=== PATIENT | female | born 2005 | race Caucasian/White ===

== ENCOUNTER 2024-12-08 14:36 | Outpatient (AMB) | payer OTHER, SELFPAY ==
--- NOTE | 2024-12-08 14:41 | MHC.PC.OV ---
Vital Signs 12/08/24 14:46 Height 5 ft 7.5 in Weight 151 lb 8 oz BMI 23.4 BP 98/66 Blood Pressure Location Lt brachial Position Sitting Respiration 12 Pulse 56 Pulse Source Pulse Oximeter Temp 97.3 F Temp Source Oral Pulse Oximetry (%) 100 Oxygen Delivery Method Room Air Intake Visit Reasons: CPE? Intake Note: New patient to establish care and CPE. Patient c/o consistent acne. Consulting Services Associate Required: No Allergies No Known Allergies Allergy (Verified 12/08/24 15:00) Medication List - Last Reconciled 12/08/24 by Olinda Florentino, POLYSTYRENE MOLDING MACHINE TENDER- isotretinoin (Accutane) PO norgestimate-ethinyl estradiol 0.18/0.215/0.25 mg-0.025 mg (Bgd-Yl-[id number]) 1 tab PO DAILY Tobacco use date assessed: 12/08/24 Dental Screening Dental Screen Date: 12/08/24 Did you have a dental visit in the last 12 months?: Yes Did you have a dental problem in the last 6 months where you did not have access to dental care?: No Was dental information given to patient?: Patient has dentist HPI HPI Comments History of Present Illness Details 19 y/o F with cystic acne Social: [employer] in [place], just finished Freshman year 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 - Symptoms exacerbated after new control. - Possible food sensitivity to gluten, uncertain improvement. - Chronic bloating and constipation, exacerbated by hormonal changes. Wonders about probiotics and dietary management for gut health - Recent wisdom teeth extraction. Optho no glasses or contacts Past Surgical History - [place] teeth extraction, approximately one month ago. Family History - No family history of polycystic ovarian syndrome (PCOS). - No family history of uterine or ovarian cancer. - No family history of celiac disease. Social History - Currently a student majoring in [employer]; undecided on future direction. 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 Health Maintenance - Tetanus vaccination due this year; patient opted to delay. - Recent blood work for Accutane regimen monitoring, focusing on liver enzymes. - Patient is aware of potential vision changes with Accutane and may require an eye exam Review of Systems - Skin: Reports cystic acne with recent exacerbation. - Gastrointestinal: Reports bloating, constipation; denies blood in stool. - Endocrine: Denies irregular periods. - Genitourinary: Denies urinary problems. - Respiratory: Denies respiratory issues. - Neurological: Denies headaches or vision problems. - Musculoskeletal: Reports muscle soreness due to daily exercise. - Psychological: Reports mild anxiety related to skin condition. - Recent dietary changes include gluten restriction for potential sensitivity assessment. - Exercises regularly, plays field hockey, and lifts weights daily. - Reports mild nervousness and irritability attributed to skin condition Physical Exam General: Well developed, well nourished, in no acute distress. Appears stated age. Head: Normocephalic, atraumatic. Eyes: Pupils are equal, round and reactive to light and accommodation. Conjunctivae are clear. Vision grossly normal. Ears: TMs clear AU, EACS WNL Nose: Patent, without discharge. Neck: Supple, no adenopathy or thyromegaly. Breast: Edu on SBE Lungs: Clear to auscultation bilaterally. No rales, rhonchi or wheeze noted. Good air flow in all falcon. Heart: Regular rate and rhythm. No murmurs, click, rubs or gallops are noted. Abdomen: Bowel sounds present in all quadrants. The abdomen is soft, nontender, with no masses or organomegaly noted. No hernias are noted. : Deferred. Reviewed recommendations for routine MANAGER [facility]ALTHCARE. Pulses: Peripheral pulses are equal and palpable bilaterally. Extremities: No clubbing, cyanosis nor edema is noted. Neurologic: Gait and station normal. Cranial Nerves 2-12 intact. Motor strength grossly symmetrical and intact. No sensory loss. Balance normal. Skin: No rashes, ulcers, or lesions noted. Turgor is good. Skin color is good. Hair and nails are without abnormalities. Cystic acne to face Psych: Normal eye contact, affect and mood appropriate, and normal interactions. Patient is alert and appropriate to context. Results Pending Discussion Notes A comprehensive discussion was conducted regarding the patient's skin condition and associated symptoms. We reviewed potential links to hormonal changes due to recent control commencement and possible dietary triggers. Discussed the benefits and necessity of a gluten and lactose challenge in cases of suspected intolerance. Explored the utility of referral to gastroenterology for comprehensive evaluation. The patient is educated on the benefits of employing a probiotic regimen for GI health and exploring possible ultrasound imaging for ongoing bloating. Provided preventative health guidance and set expectations for lab result timelines from today's testing. Explained the importance of using the patient portal for direct communication and frequent updates. Assured the patient of future availability for telehealth appointments as needed during school term. Assessment and Plan 1. Cystic Acne - Correlation with control; Accutane to be initiated; eye exam advised. Managed by Derm [place] 2. Constipation and Bloating - Probiotics and dietary fiber trial or OTC miralax; Considered checking labs but she is limiting dairy and gluten so labs would not be useful at this time; consider ultrasound and GI consult if sx cont. Patient Instructions - Start Accutane as scheduled on December 26. - Consider trying a probiotic to help with gut health. could try otc miralax, too. - Maintain a balanced diet; monitor any food sensitivities. - Opt for ultrasound if bloating persists. - Use patient portal for direct communication. -RTO 1 year CPE sooner prn Consent Patient was informed and verbally consented to the use of an ambient scribe for clinic note documentation during this visit. An additional 20 minutes was spent addressing the problem(s) noted at todays visit. This includes time spent before the visit reviewing the chart, time spent during the visit, and time spent after the visit on documentation [facility] Medical History (Updated 12/08/24 @ 15:30 by [facility] Acne No pertinent family history Surgical History (Updated 12/08/24 @ 14:50 by Cristiane Zaragoza MA) [place] teeth extracted (~2024) Social History (Updated 12/08/24 @ 14:48 by Cristiane Zaragoza MA) Household Members: Family Housing: House Are you a primary life care planner to a significant other at home: No Do you presently have visiting nurse or other home services: No Alcohol intake: never Patient Tobacco Use Status: Never used Tobacco e-Cigarette/Vaping Use: Never Used Second Hand Smoke Exposure: No Current occupational status: employed and student 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 1. Little interest or pleasure in doing things: not at all 2. Feeling down, depressed, or hopeless: not at all 3. Trouble falling or staying asleep, or sleeping too much: not at all 4. Feeling tired or having little energy: not at all 5. Poor appetite or overeating: not at all 6. Feeling bad about yourself - or that you are a failure or have let yourself or your family down: not at all 7. Trouble concentrating on things, such as reading the newspaper or watching television: not at all 8. Moving or speaking so slowly that other people could have noticed. Or the opposite - being so fidgety or restless that you have been moving around a lot more than usual: not at all 9. Thoughts that you would be better off or of hurting yourself in some way: not at all Total score: 0 Depression Screening Interpretation: Negative Depression Screening Done: Yes 56881 - PHQ-9 Billing: Yes Source: Developed by Drs. Christiano Rosario, Lynn Scales, Alphonso Dunham and colleagues, with an educational niyah from [employer]. Thrive Questionnaire Date Thrive assessed: 12/08/24 I am a: Patient What is your living situation today?: I have a steady place to live Within the past 12 months, did the food you bought not last and you didn't have the money to get more?: Never true Within the past 12 months, did you worry whether your food would run out before you got money to buy more?: Never true Do you have trouble paying for medicines?: No Do you have trouble getting transportation to medical appointments?: No Do you have trouble paying your heating and electricity bill?: No Do you have trouble taking care of your child, family member or friend?: No Do you have trouble with day-to-day activities such as bathing, preparing meals, shopping, managing finances, etc.?: No Are you currently unemployed and looking for a job?: No Are you interested in more education?: No Please select the resources that you would like help with: None Currently or been in a relationship where the following occur: No concerns reported THRIVE Score: 0 AUDIT C Alcohol Use Questionnaire (AUDIT-C) 1. How often do you have a drink containing alcohol?: Monthly or less 2. How many drinks containing alcohol do you have on a typical day when you are drinking?: 1 or 2 3. How often do you have six or more drinks on one occasion?: Never Total Score: 1 Score Reviewed/Action Taken: Yes LATRELL-7 AMB Questionnaire LATRELL-7 Date LATRELL - 7 assessed: 12/08/24 Feeling nervous, anxious, or on edge: 1 = Several days Not being able to stop or control worryin = Several days Worrying too much about different things: 0 = Not at all Trouble relaxin = Not at all Being so restless that it is hard to sit still: 0 = Not at all Becoming easily annoyed or irritable: 1 = Several days Feeling afraid as if something awful might happen: 0 = Not at all Total LATRELL-7 score (0-4 normal; 5-9 mild; 10-14 moderate; 15-21 severe): 3 Source: Developed by Drs. Christiano Rosario, Lynn Scales, Alphonso Dunham and colleagues, with an educational niyah from [employer]. LATRELL-7 Assessment Billing LATRELL-7 Assessment Tool: LATRELL-7 Assessment 87584 Physical exam (Primary Care) Vital Signs: Last Vital Signs Temp 97.3 F 12/08/24 14:46 Pulse 56 12/08/24 14:46 Resp 12 12/08/24 14:46 BP 98/66 12/08/24 14:46 Pulse Ox 100 12/08/24 14:46 Oxygen Delivery Method Room Air 12/08/24 14:46 BMI result Body Mass Index 23.4 Tobacco/Smoking Status: Tobacco use Status Tobacco use date assessed 12/08/24 12/08/24 14:47 Patient Tobacco Use Status Never used Tobacco 12/08/24 14:48 e-Cigarette/Vaping Use Never Used 12/08/24 14:48 PHQ-9: PHQ-9 Score PHQ-9: Total score 0 12/08/24 14:55 Depression Screening Interpretation: Negative Thrive Assessment: Date of Thrive Assessment Date Thrive assessed 12/08/24 12/08/24 14:47 Currently or been in a relationship where the following occur: No concerns reported Coding Level of Care Code New Pt Level 2 (39566) New Pt Prev Care 18-39yr(76889 Diagnoses Encounter to establish care Z76.89 Abdominal bloating R14.0 Constipation, unspecified constipation type K59.00 Constipation type: unspecified constipation type Cystic acne L70.0 Uses control Z78.9 Laboratory exam ordered as part of routine general medical examination Z00.00 Tetanus, diphtheria, and acellular pertussis (Tdap) vaccination declined Z28.21 Encounter for general adult medical examination with abnormal findings Z00.01 Additional Codes LATRELL-7 Assessment Billing - LATRELL-7 Assessment Tool: LATRELL-7 Assessment 09575 ([id number]) PHQ-9 - 38237 - PHQ-9 Billing: Yes ([id number]) Assessment & Plan Assessment & Plan (1) Encounter to establish care: Code(s): Z76.89 - Persons encountering health services in other specified circumstances (2) Abdominal bloating: Code(s): R14.0 - Abdominal distension (gaseous) Category: Medical (3) Constipation: Code(s): K59.00 - Constipation, unspecified Category: Medical Qualifiers: Constipation type: unspecified constipation type Qualified Code(s): K59.00 - Constipation, unspecified (4) Cystic acne: Code(s): L70.0 - Acne vulgaris Category: Medical (5) Uses control: Code(s): Z78.9 - Other specified health status Category: Social Hx (6) Laboratory exam ordered as part of routine general medical examination: Code(s): Z00.00 - Encounter for general adult medical examination without abnormal findings Category: Medical (7) Tetanus, diphtheria, and acellular pertussis (Tdap) vaccination declined: Code(s): Z28.21 - Immunization not carried out because of patient refusal Category: Medical (8) Encounter for general adult medical examination with abnormal findings: Onset Date: ~12/08/24 Code(s): Z00.01 - Encounter for general adult medical examination with abnormal findings Category: Medical Plan . Orders: Orders Complete Blood Count no Diff Today Z00.00 - Encounter for general adult medical examination without abnormal findings Hemoglobin A1c Today Z00.00 - Encounter for general adult medical examination without abnormal findings Microalbumin, Random (w Creat) Today Z00.00 - Encounter for general adult medical examination without abnormal findings Vitamin D 1,25 dihydroxy Today Z00.00 - Encounter for general adult medical examination without abnormal findings Comprehensive Met. Panel Today Z - Encounter for general adult medical examination without abnormal findings Ferritin Today - Encounter for general adult medical examination without abnormal findings Lipid Panel Today - Encounter for general adult medical examination without abnormal findings TSH reflex Free T4 Today - Encounter for general adult medical examination without abnormal findings Vitamin B12 and Folate Today - Encounter for general adult medical examination without abnormal findings Patient Instructions: Patient Instructions - Start Accutane as scheduled on December 26. - Consider trying a probiotic to help with gut health. could try otc miralax, too. - Maintain a balanced diet; monitor any food sensitivities. - Opt for ultrasound if bloating persists. - Use patient portal for direct communication. -RTO 1 year CPE sooner prn Health screenings for women You should visit your health care provider from time to time, even if you are healthy. The purpose of these visits is to: Screen for medical issues Assess your risk for future medical problems Encourage a healthy lifestyle Update vaccinations and other preventive care services Help you get to know your provider in case of an illness Information Even if you feel fine, you should still see your provider for regular checkups. These visits can help you avoid problems in the future. For example, the only way to find out if you have high blood pressure is to have it checked regularly. High blood sugar and high cholesterol levels also may not have any symptoms in the early stages. A simple blood test can check for these conditions. There are specific times when you should see your provider or receive specific health screenings. The [place] Preventive Services Task Force publishes a list of recommended screenings. Below are screening guidelines for women ages 18 to 39. BLOOD PRESSURE SCREENING Your blood pressure should be checked at least once every 3 to 5 years if: Your blood pressure is in the normal range (top number less than 120 mm Hg and bottom number less than 80 mm Hg) You don't have risk factors for high blood pressure Ask your provider if you need your blood pressure checked more often if: The top number is 120 to 129 mm Hg or the bottom number is 70 to 79 mm Hg You have diabetes, heart disease, kidney problems, are overweight, or have certain other health conditions You have a first-degree relative with high blood pressure You are Black You had high blood pressure during a If the top number is 130 mm Hg or greater or the bottom number is 80 mm Hg or greater, this is considered stage 1 hypertension. Schedule an appointment with your provider to learn how you can reduce your blood pressure. Watch for blood pressure screenings in your area. Ask your provider if you can stop in to have your blood pressure checked. BREAST CANCER SCREENING Experts do not agree about the benefits of breast self-exams in finding breast cancer or saving lives. Talk to your provider about what is best for you. A screening mammogram is not recommended for most women under age 40. Your provider may discuss and recommend mammograms, MRI scans, or ultrasounds if you have an increased risk for breast cancer, such as: A mother or sister who had breast cancer at a young age (most often starting screening earlier than the age the close relative was diagnosed) You carry a high-risk genetic marker CERVICAL CANCER SCREENING Cervical cancer screening should start at age 21 years unless your provider advises otherwise. After the first test: Women ages 21 through 29 should have a Pap test every 3 years. Exoprts do not agree on whether HPV testing is recommended for this age group. Women ages 30 through 65 should be screened with either a Pap test every 3 years or the HPV test every 5 years or both tests every 5 years (called cotesting ). Women who have been treated for precancer (cervical dysplasia) should continue to have Pap tests for 20 years after treatment or until age 65, whichever is longer. If you have had your uterus and cervix removed (total hysterectomy), and you have not been diagnosed with cervical cancer or precancer (high grade cervical neoplasia), you do not need cervical cancer screening. CHOLESTEROL SCREENING Cholesterol screening should begin at: Age 45 for women with no known risk factors for coronary heart disease Age 20 for women with known risk factors for coronary heart disease Repeat cholesterol screening should take place: Every 5 years for women with normal cholesterol levels More often if changes occur in lifestyle (including weight gain and diet) More often if you have diabetes, heart disease, kidney problems, or certain other conditions DIABETES SCREENING You should be screened for diabetes starting at age 35 and then repeated every 3 years if you have no risk factors for diabetes. Screening may need to start earlier and be repeated more often if you have other risk factors for diabetes, such as: You have a first degree relative with diabetes. You are overweight or have obesity. You have high blood pressure, prediabetes, or a history of heart disease. Screening for diabetes should be done if you are planning to become and you are overweight and have other risk factors such as high blood pressure. DENTAL EXAM Go to the dentist once or twice every year for an exam and cleaning. Your dentist will evaluate if you need more frequent visits. EYE EXAM Have an eye exam every 5 to 10 years before age 40. If you have vision problems, have an eye exam every 2 years or more often if recommended by your provider. You should have an eye exam that includes an examination of your retina (back of your eye) at least every year if you have diabetes. IMMUNIZATIONS Commonly needed vaccines include: Flu shot: get one every year. COVID-19 vaccine: ask your provider what is best for you. Tetanus-diphtheria and acellular pertussis (Tdap) vaccine: have one at or after age 19 as one of your tetanus-diphtheria vaccines if you did not receive it as an adolescent. Tetanus-diphtheria: have a booster (or Tdap) every 10 years. Varicella vaccine: receive 2 doses if you never had chickenpox or the varicella vaccine. Hepatitis B vaccine: receive 2, 3, or 4 doses, depending on your exact circumstances. Measles, mumps, and rubella (MMR) vaccine: receive 1 to 2 doses if you are not already immune to MMR. Your provider can tell you if you are immune. Ask your provider about the human papillomavirus (HPV) vaccine if: You have not received the HPV vaccine in the past You have not completed the full vaccine series (you should catch up on this shot) Ask your provider if you should receive other immunizations if you have certain health problems that increase your risk for some diseases such as pneumonia. INFECTIOUS DISEASE SCREENING Women who are sexually active should be screened for chlamydia and gonorrhea up until age 25. Women 25 years and older should be screened for chlamydia and gonorrhea if at high risk. Screening for hepatitis C: All adults ages 18 to 79 should get a one-time test for hepatitis C. people should be screened at every . Screening for human immunodeficiency virus (HIV): All people ages 15 to 65 should get a one-time test for HIV. Depending on your lifestyle and medical history, you may also need to be screened for infections such as syphilis and HIV, as well as other infections. PHYSICAL EXAM All adults should visit their provider from time to time, even if they are healthy. The purpose of these visits is to: Screen for disease Assess your risk of future medical problems Encourage a healthy lifestyle Update your vaccinations and other preventive care services Maintain a relationship with a provider in case of an illness Your height, weight, and BMI should be checked at every exam. During your exam, your provider may ask you about: Depression and anxiety Diet and exercise Alcohol and tobacco use Safety issues, such as using seat belts, smoke detectors, and intimate partner violence Your medicines and risk for interactions SKIN SELF-EXAM Your provider may check your skin for signs of skin cancer, especially if you're at high risk, such as if you: Have had skin cancer before Have close relatives with skin cancer Have a weakened immune system OTHER SCREENING Talk with your provider about colon cancer screening if you have a strong family history of colon cancer or polyps, or if you have had inflammatory bowel disease or polyps yourself. Routine bone density screening of women under 40 is not recommended.
[2024-12-08 14:46] VITALS: BP 98/66; PULSE 56; RESP 12; TEMP 36.3; O2SAT 100; BMI 23.4
--- OUTSIDE RECORDS SUMMARY | 2024-12-08 15:07 | XMS_ITS | Data Portability ---
Author Organization [place] - [facility], Allergy Address [address] [place] [id number] Care Team Providers Care Prop Worker Name Role Phone MARYBELKIS CHAUDHARY Primary Care Provider Assessment No assessment recorded. Plan of Treatment Reminders Order Date Submit Date Provider Last Modified By Organization Details Last Modified Time Details Appointments None recorded. Lab None recorded. Referral None recorded. Procedures None recorded. Surgeries None recorded. Imaging None recorded. Medication Orders Augmentin 875 mg-125 mg tablet 2023 [id number], [address] [place], [address], 4 15:37:06 prednisone 20 mg tablet 2023 024 [id number], [address] [place], [address], 4 15:37:06 Patient TargetsNo targets recorded. Patient InstructionsNo instructions recorded. Reason for Referral None Reported. Problems Name Problem SNOMED Code Status Onset Date Resolution Date Notes Provider Name and Address Organization Details Recorded Time Acute tonsillitis 11688666 Active 2023 MAICO Joiner MD [address] [place] [address], [place], [phone], [facility] - [facility] 4 15:34:40 Peritonsillar abscess 18622121 Active 2023 MAICO Joiner MD [address] [place] [address], [place], [phone], [facility] - [facility] 15:40:31 Problem Notes None recorded. Procedures Surgical History Date Name Laterality Status Provider Name and Address Organization Details Recorded Time 05/07/20 24 I & D Peritonsillar Abscess_JMS completed MAICO BUTLER MD [address] [place] [address], [phone], [facility] - [facility] 05/07/2024 15:40:10 Imaging Results None recorded. Procedure Notes None recorded. Medical Equipment None Reported. Allergies No known drug allergies Medications Name Sig Start Date Stop Date Status Note LastModified by Organization Details LastModified Time clindamycin HCl 300 mg capsule active Not Available Not Available Not Available prednisone 20 mg tablet Take 1 tablet as needed by oral route. active Not Available Not Available No t Available penicillin V potassium 500 mg tablet TAKE 1 TABLET 2 (TWO) TIMES A DAY. TAKE WITH FOOD, YOGURT, PROBIOT ICS. FINISH ALL. 05/07 completed Not Available Not Available Not Available amoxicillin 875 mg-potassium clavulanate 125 mg tablet Take 1 tablet every 12 hours by oral route for 10 days. active Not Available Not Available No t Available Debora (28) 3 mg-0.02 mg tablet TAKE 1 TABLET BY MOUTH EVERY DAY active Not Available Not Available No t Available Vitals Date Recorded Body height Body mass index (BMI) Body mass index (BMI) [Percentile] Per age and sex Body weight Provider Name and Address Organization Details Last Updated DateTime 05/07/2024 172.72 cm 19.8 kg/m2 25 % 64593.01 g Carolyn George [facility] 05/07/2024 14:50:59 Social History None recorded. Functional Status None recorded. Mental Status None recorded. Family History Nothing Reported. Medical History No medical history recorded. Gynecological HistoryNo gynecological history recorded. Obstetrics History GPAL:G 0 P 0 0 0 0 Past Encounters Encounter ID Performer Location Encounter Start Date Encounter Closed Date Diagnosis/Indication Diagnosis SNOMED-CT Code Diagnosis ICD10 Code Diagnosis Note [id number] MAICO BUTLER MD [facility] [address] [phone] 05/07/2024 14:37:46 05/07/2024 16:51:08 Acute tonsillitis 31977959 J03.90 I attempted aspiration of a right WELL LOGGER without any return of purulence. She likely has not quite developed an abscess yet. I will send abx and 2 doses of steroids to try and keep her out of the hospital. I told her if she doesn't improve she has to go to the ER for pain control and hydration. No indication for tonsilelct ailyn at this time. Peritonsillar abscess 15 108292 J36 phlegmon rather than abscess Health Concerns Section Related Observation LastModified by Organization Detai ls LastModified Time None Recorded Concern Status LastModified by Organization Details LastModified Time None Recorded Advance Directives Directive None Recorded Payers Insurance Date Sequence Insurance Name Policy Number Policy Garcia Covered Member ID Garcia Member ID Guarantor Name 05/07/2024 1 [facility] [employer] [facility] (PPO) [id number] Rajwinder Johns [id number] Rajwinder Johns Notes Date Note Type Note Provider Name and Address Organization Details Recorded Time 05/07/2024 text/html She developed a sore throat yesterday. She went to urgent care yesterday. No prior history of strep. She was tested for strep, covid and flu which were all negative. Otherwise healthy. She does not smoke. MAICO BUTLER MD [address] [place] [address], [place], [phone], [facility] - [facility] 05/07/2024 15:40:48 OBGyn Episode No OBEpisode recorded.
--- OUTSIDE RECORDS SUMMARY | 2024-12-08 15:07 | XMS_ITS | Encounter Summary ---
Author Organization [facility] Address [address] [place] [address] Phone Care Team Providers Care Masticator Name Role Phone Tiana Mcghee MD Primary Care Provider Encounter Details Date Type Department Care Team (Late st Contact Info) Description 01/25/2017 Conversion Encounter [facility] [place] [address] [place] [address] Social History Tobacco Use Types Packs/Day Years Used Date Smoking Tobacco: Never Assessed Comments Unknown Sex and Gender Information Value Date Recorded Sex Assigned at Female 07/05/2023 9:27 AM EST Legal Sex Female 5:07 PM EDT Gender Identity Female 07/05/2023 9:27 AM EST Sexual Orientation Straight 07/05/2023 9: 27 AM EST documented as of this encounter Plan of Treatment Not on file documented as of this encounter Visit Diagnoses Not on filedocumented in this encounter Care Teams Masticator Relationship Specialty Start Date End Date Tiana Mcghee MD [address] [place] [address] PCP - General 01/19/17 documented as of this encounter
== END 2024-12-08 15:38 | disposition home or self-care (01) ==
LOC: HO.HMCFM 14:37
PROVIDERS: PCP Nurse Practitioner Family; Visit Provider Nurse Practitioner Family
DX: Z00.00 Encounter for general adult medical examination without abnormal findings (principal); R14.0 Abdominal distension (gaseous); K59.00 Constipation, unspecified; L70.0 Acne vulgaris; Z78.9 Other specified health status; Z76.89 Persons encountering health services in other specified circumstances; Z28.21 Immunization not carried out because of patient refusal

== ENCOUNTER → 2024-12-08 14:36 | Outpatient (BNVA) | payer OTHER, SELFPAY | PROVIDERS: PCP Nurse Practitioner Family; Visit Provider Nurse Practitioner Family | DX: Z13.89 Encounter for screening for other disorder (principal) ==

== ENCOUNTER 2024-12-08 15:23 | Outpatient (REF) | payer OTHER, SELFPAY ==
[2024-12-08 17:58] LABS: Hemoglobin 12.1 g/dl (12.0-16.0); Mean Corpuscular HGB Conc 32.7 g/dl (31.0-35.0); Mean Corpuscular Hemoglobin 28.9 pg (27.0-33.0); Mean Corpuscular Volume 88.5 fL (80.0-98.0); Mean Platelet Volume 11.3 fL (9.4-12.3); Platelet Count 265 X10*3/uL (160-400); Red Blood Count 4.18 X10*6/uL (4.20-5.50); Red Cell Distribution Width 13.2 % (11.0-16.0); White Blood Count 4.6 X10*3/uL (4.8-10.8)
[2024-12-08 18:18] LABS: Alanine Aminotransferase 18 U/L (0-31); Albumin Level 4.3 g/dL (3.5-5.0); Alkaline Phosphatase 55 U/L (39-117); Anion Gap 12 (12-20); Aspartate Amino Transferase 31 U/L (5-31); Bilirubin Total 0.5 mg/dL (0.0-1.0); Blood Urea Nitrogen 7 mg/dL (9-16); Calcium 8.9 mg/dL (8.4-10.2); Carbon Dioxide 26 mmol/L (22-29); Chloride 105 mmol/L (96-108); Cholesterol 148 mg/dL (<200); Estimated Glomerular Filt Rate > 60; Glucose Random 78 mg/dL (60-115); HDL Cholesterol 64 mg/dL (>40); LDL Cholesterol Calculated 61 mg/dL (<100); Potassium 4.1 mmol/L (3.3-5.1); Sodium 139 mmol/L (135-145); Triglycerides 116 mg/dL (<150)
[2024-12-08 18:21] LABS: Creatinine Urine 18.31 mg/dL; Microalbumin Urine < 5.0 mg/L
[2024-12-08 18:37] LABS: Ferritin 9 ng/mL (10-122); TSH reflex Free T4 0.84 uIU/mL (0.32-4.0)
[2024-12-08 18:54] LABS: Folate 8.6 ng/mL (> or = 4.0); Vitamin B12 402 pg/mL (200-900)
[2024-12-09 05:26] LABS: Estimated Average Glucose 85 mg/dL; Hemoglobin A1c % 4.6 % (<6.0)
[2024-12-15 01:19] LABS: VITAMIN D (1,25 OH) D3 57 pg/mL; Vit D (1,25-Dihydroxy) Total 57 pg/mL (18-72); Vitamin D (1,25 OH) D2 <8 pg/mL
== END 2024-12-08 15:24 | disposition home or self-care (01) ==
LOC: HO.WFDLDS 15:23
PROVIDERS: Visit Provider Nurse Practitioner Family
DX: Z00.00 Encounter for general adult medical examination without abnormal findings (principal); Z76.89 Persons encountering health services in other specified circumstances; R14.0 Abdominal distension (gaseous); K59.00 Constipation, unspecified; L70.0 Acne vulgaris; D50.9 Iron deficiency anemia, unspecified; Z78.9 Other specified health status; Z28.21 Immunization not carried out because of patient refusal; Z13.31 Encounter for screening for depression; Z13.39 Encounter for screening examination for other mental health and behavioral disorders; Z13.1 Encounter for screening for diabetes mellitus
CPT/HCPCS: 36415; 80053; 80061; 82570; 82607; 82652; 82728; 82746; 83036; 84443; 85027; 96127